=== PATIENT | male | born 1965 | race African-American/Black ===

== ENCOUNTER 2017-07-18 11:05 | Inpatient (IN) | payer OTHER ==
[2017-07-18 12:06] VITALS: BMI 30.5
--- NOTE | 2017-07-18 14:09 | HP ---
CIWA Score - CIWA Score Nausea/Vomitin Muscle Tremors: 4-Moderate,w/Arms Extend Anxiety: 3 Agitation: 4-Moderately Restless Paroxysmal Sweats: 3 Orientation: 0-Oriented Tacttile Disturbances: 0-None Auditory Disturbances: 0-None Visual Disturbances: 0-None Headache: 2-Mild CIWA-Ar Total Score: 18 Admission ROS BHS - HPI Chief Complaint: I am here for detox and rehab for treatment. Allergies/Adverse Reactions: Allergies Allergy/AdvReac Type Severity Reaction Status Date / Time No Known Allergies Allergy Verified 07/18/17 12:27 History of Present Illness: pt is a 51yr old male with a history of alcohol and crack cocaine dependence seeking detox for treatment. Exam Limitations: No Limitations - Ebola screening Have you traveled outside of the country in the last 21 days: No Have you had contact with anyone from an Ebola affected area: No Have you been sick,other than usual withdrawal symptoms: No Do you have a fever: No - Review of Systems Constitutional: Chills, Diaphoresis, Loss of Appetite, Night Sweats, Changes in sleep EENT: reports: No Symptoms Reported Respiratory: reports: No Symptoms reported Cardiac: reports: No Symptoms Reported GI: reports: Nausea, Poor Appetite, Poor Fluid Intake, Vomiting : reports: No Symptoms Reported Musculoskeletal: reports: Back Pain, Muscle Pain, Muscle Weakness Integumentary: reports: Flushing, Sweating Neuro: reports: Headache, Tingling, Tremors Endocrine: reports: Excessive Sweating, Flushing, Intolerance to Cold, Intolerance to Heat Hematology: reports: No Symptoms Reported Psychiatric: reports: Judgement Intact, Mood/Affect Appropiate, Orientated x3, Agitated, Anxious Other Systems: Reviewed and Negative Patient History - Patient Medical History Hx Anemia: No Hx Asthma: No Hx Chronic Obstructive Pulmonary Disease (COPD): No Hx Cancer: No Hx Cardiac Disorders: No Hx Congestive Heart Failure: No Hx Hypertension: Yes Hx Hypercholesterolemia: Yes Hx Pacemaker: No HX Cerebrovascular Accident: No Hx Seizures: No Hx Dementia: No Hx Diabetes: Yes (Type II) Hx Gastrointestinal Disorders: No Hx Liver Disease: No Hx Genitourinary Disorders: No Hx Sexually Transmitted Disorders: No Hx Renal Disease (ESRD): No Hx Thyroid Disease: No Hx Human Immunodeficiency Virus (HIV): No (negtive) Hx Hepatitis C: No (negative) Hx Depression: Yes Hx Suicide Attempt: Yes (Tried to overdose in 2007) Hx Bipolar Disorder: No Hx Schizophrenia: No Other Medical History: insomnia - Patient Surgical History Past Surgical History: No - PPD History Previous Implant?: Yes Documented Results: Negative w/o proof Implanted On Prior [facility] Admission?: No PPD to be Administered?: Yes - Reproductive History Patient is a Female of Child Bearing Age (11 -55 yrs old): No - Smoking Cessation Smoking history: Current every day smoker Have you smoked in the past 12 months: Yes Aproximately how many cigarettes per day: 3 Hx Chewing Tobacco Use: No Initiated information on smoking cessation: Yes 'Breaking Loose' booklet given: 07/18/17 - Substance & Tx. History Hx Alcohol Use: Yes Hx Substance Use: Yes Substance Use Type: Alcohol, Cocaine Hx Substance Use Treatment: Yes (last detox [facility] ) - Substances Abused Alcohol Route: Oral Frequency: Daily Amount used: 6pk beer and up Age of first use: 14 Date of Last Use: 07/18/17 Crack Route: Smoking Frequency: Daily Amount used: $100 and up Age of first use: 22 Date of Last Use: 07/18/17 Family Disease History - Family Disease History Family History: Denies Admission Physical Exam BHS - Vital Signs Vital Signs: Vital Signs - 24 hr 07/18/17 12:01 Temperature 96.7 F L Pulse Rate 94 H Respiratory 20 Rate Blood Pressure 152/94 - Physical General Appearance: Yes: Appropriately Dressed, Moderate Distress, Tremorous, Irritable, Sweating, Anxious HEENTM: Yes: Hearing grossly Normal, Normal Voice, Nasal Congestion Respiratory: Yes: Lungs Clear, Normal Breath Sounds, No Respiratory Distress Neck: Yes: No masses,lesions,Nodules Breast: Yes: Within Normal Limits Cardiology: Yes: Regular Rhythm, Regular Rate, S1, S2 Abdominal: Yes: Normal Bowel Sounds, Non Tender, Soft Genitourinary: Yes: Within Normal Limits Back: Yes: Normal Inspection Musculoskeletal: Yes: full range of Motion Extremities: Yes: Normal Capillary Refill, Normal Inspection, Tremors Neurological: Yes: Fully Oriented, Alert, Normal Response Integumentary: Yes: Normal Color, Diaphoresis Lymphatic: Yes: Within Normal Limits - Diagnostic (1) Alcohol dependence with uncomplicated withdrawal Current Visit: Yes Status: Chronic (2) Crack cocaine use Current Visit: Yes Status: Chronic (3) Diabetes mellitus Current Visit: Yes Status: Chronic Qualifiers: Diabetes mellitus type: type 1 Diabetes mellitus complication status: without complication Qualified Code(s): E10.9 - Type 1 diabetes mellitus without complications; E10.9 - Type 1 diabetes mellitus without complications; E10.9 - Type 1 diabetes mellitus without complications; E10.9 - Type 1 diabetes mellitus without complications (4) Hypercholesteremia Current Visit: Yes Status: Chronic (5) Hypertension Current Visit: Yes Status: Chronic Qualifiers: Hypertension type: essential hypertension Qualified Code(s): I10 - Essential (primary) hypertension; I10 - Essential (primary) hypertension; I10 - Essential (primary) hypertension (6) Neuropathic pain Current Visit: Yes Status: Chronic (7) Nicotine dependence Current Visit: Yes Status: Chronic Qualifiers: Nicotine product type: cigarettes Substance use status: uncomplicated Qualified Code(s): F17.210 - Nicotine dependence, cigarettes, uncomplicated; F17.210 - Nicotine dependence, cigarettes, uncomplicated Cleared for Admission BHS - Detox or Rehab [facility] Level of Care: Medically Managed Detox Regimen/Protocol: Librium [facility] Breath Alcohol Content Breath Alcohol Content: 0 Urine Drug Screen - Results Drug Screen Negative: No Urine Drug Screen Results: EDMAR-Cocaine
[2017-07-18] MEDS ORDERED: MAGNESIUM HYDROX 2400MG/30ML ORAL SUSPENSION 30 ML CUP PO PRN (14:10)
[2017-07-18] MEDS ORDERED: MAGNESIUM CITRATE 300 ML BOTTLE PO PRN (14:10)
[2017-07-18] MEDS ORDERED: guaiFENesin/D-METHORPHAN HB 10 ML UNIT-DOSE CUPS PO PRN (14:10)
[2017-07-18] MEDS ORDERED: ACETAMINOPHEN 325 MG TABLET (FP) PO PRN (14:10)
[2017-07-18] MEDS ORDERED: MENTHOL/PHENOL 1 EACH UD MM PRN (14:10)
[2017-07-18] MEDS ORDERED: IBUPROFEN 400 MG TABLET (FP) PO PRN (14:10)
[2017-07-18] MEDS ORDERED: P-EPHED 60MG/TRIPROLIDI 2.5MG TABLET PO PRN (14:10)
[2017-07-18] MEDS ORDERED: chlordiazePOXIDE HCL 25 MG CAPSULE PO PRN (14:10)
[2017-07-18] MEDS ORDERED: LOPERAMIDE HCL 2 MG CAPSULE PO PRN (14:10)
[2017-07-18] MEDS ORDERED: NICOTINE POLACRILEX 2 MG GUM BUC PRN (14:10)
[2017-07-18] MEDS ORDERED: diphenhydrAMINE HCL 50 MG CAPSULE PO PRN (14:10)
[2017-07-18] MEDS ORDERED: MAG HYDROX/AL HYDROX/SIMETH 30 ML UNIT-DOSE CUP PO PRN (14:10)
[2017-07-18] MEDS ORDERED: chlordiazePOXIDE HCL 25 MG CAPSULE PO ONE (14:47)
[2017-07-18] MEDS: GABAPENTIN 400 MG CAPSULE (FP) PO SCH ×2 (15:46→22:33)
[2017-07-18] MEDS: metFORMIN HCL 500 MG TABLET (FP) PO SCH (17:20)
[2017-07-18] MEDS: chlordiazePOXIDE HCL 25 MG CAPSULE PO SCH ×2 (17:20→22:33)
[2017-07-18 18:10] LABS: URINE APPEARANCE CLEAR; URINE BILIRUBIN NEGATIVE (NEGATIVE); URINE BLOOD NEGATIVE (NEGATIVE); URINE COLOR YELLOW; URINE GLUCOSE (UA) 2+ (NEGATIVE); URINE KETONE TRACE (NEGATIVE); URINE NITRITE NEGATIVE (NEGATIVE); URINE UROBILINOGEN NEGATIVE mg/dL (0.2-1.0)
[2017-07-18 18:17] LABS: URINE PROTEIN 1+ (NEGATIVE)
[2017-07-18 22:00] LABS: URINE LEUK ESTERASE Negative (NEGATIVE)
[2017-07-18] MEDS: THIAMINE HCL 100 MG TABLET (FP) PO SCH (22:33)
[2017-07-18] MEDS: ATORVASTATIN CA 40 MG TABLET (FP) PO SCH (22:33)
[2017-07-18] MEDS: INSULIN DETEMIR 100 UNITS/ML MDV SQ SCH (22:33)
[2017-07-19] MEDS: chlordiazePOXIDE HCL 25 MG CAPSULE PO SCH ×4 (05:50→22:10)
[2017-07-19] MEDS: GABAPENTIN 400 MG CAPSULE (FP) PO SCH ×3 (05:50→22:08)
[2017-07-19] MEDS: metFORMIN HCL 500 MG TABLET (FP) PO SCH ×2 (06:52→17:21)
[2017-07-19] MEDS ORDERED: INSULIN (NOVOLOG) ASPART 100 UNITS/ML 10ML VIAL ONE ×3 (07:58→17:19)
[2017-07-19] MEDS: INSULIN SLIDING SCALE (NOVOLOG) 1 VIAL SQ SCH ×3 (08:02→17:21)
--- NOTE | 2017-07-19 09:51 | EKG ---
Test Reason : Blood Pressure : / mmHG Vent. Rate : 078 BPM Atrial Rate : 078 BPM P-R Int : 172 ms QRS Dur : 100 ms QT Int : 372 ms P-R-T Axes : 055 043 052 degrees QTc Int : 424 ms NORMAL SINUS RHYTHM NORMAL ECG NO PREVIOUS ECGS AVAILABLE Confirmed by AMADOU MONTGOMERY MD ([id number]) on 07/19/2017 9:51:42 AM Referred By: Confirmed By:AMADOU MONTGOMERY MD
[2017-07-19 09:54] LABS: MCH 29.7 pg (25.7-33.7); MCHC 32.7 g/dl (32.0-35.9); MEAN CELL VOLUME 90.8 fl (80-96); PLATELET COUNT 193 K/MM3 (134-434); RDW 13.5 % (11.9-15.9); WHITE BLOOD COUNT 9.3 K/mm3 (4.0-10.0)
[2017-07-19 10:15] LABS: ALBUMIN 4.4 g/dl (3.4-5.0); ALK PHOS 120 U/L (45-117); ANION GAP 10 (8-16); BILIRUBIN,TOTAL 0.9 mg/dL (0.2-1.0); CALCIUM 9.8 mg/dL (8.5-10.1); CO2 25 mmol/L (21-32); CREATININE 1.6 mg/dL (0.7-1.3); SGOT/AST 38 U/L (15-37); SGPT/ALT 71 U/L (12-78)
[2017-07-19 10:45] LABS: GLUCOSE,RANDOM 345 mg/dL (74-106)
[2017-07-19] MEDS: PRENATAL VITAMINS W/ FOLIC ACID TABLET (FP) PO SCH (10:48)
[2017-07-19] MEDS: ASPIRIN 81 MG CHEWABLE TABLETS PO SCH (10:48)
[2017-07-19] MEDS: METOPROLOL SUCCINATE 25 MG TAB.SR.24H (FP) PO SCH (10:48)
[2017-07-19] MEDS: NICOTINE 14 MG/24 HOURS TOPICAL PATCH TD SCH (10:49)
--- NOTE | 2017-07-19 12:40 | PN ---
[facility] CIWA - CIWA Score Nausea/Vomitin-No Nausea/No Vomiting Muscle Tremors: 4-Moderate,w/Arms Extend Anxiety: 4-Mod. Anxious/Guarded Agitation: 4-Moderately Restless Paroxysmal Sweats: 1-Minimal Palms Moist Orientation: 0-Oriented Tacttile Disturbances: 3-Moderate Itch/Numb/Burn Auditory Disturbances: 0-None Visual Disturbances: 0-None Headache: 0-None Present CIWA-Ar Total Score: 16 S Progress Note (SOAP) Subjective: ANXIETY,SWEATS, ALERT O X 3. OOB ON HALLWAY. Objective: 07/19/17 12:39 Vital Signs Temperature 96.2 F L 07/19/17 06:53 Pulse Rate 98 H 07/19/17 06:53 Respiratory Rate 18 07/19/17 06:53 Blood Pressure 129/80 07/19/17 06:53 O2 Sat by Pulse Oximetry (%) Laboratory Last Values WBC 9.3 K/mm3 (4.0-10.0) 07/19/17 06:00 RBC 5.01 M/mm3 (4.00-5.60) 07/19/17 06:00 Hgb 14.9 GM/dL (11.7-16.9) 07/19/17 06:00 Hct 45.4 % (35.4-49) 07/19/17 06:00 MCV 90.8 fl (80-96) 07/19/17 06:00 MCH 29.7 pg (25.7-33.7) 07/19/17 06:00 MCHC 32.7 g/dl (32.0-35.9) 07/19/17 06:00 RDW 13.5 % (11.9-15.9) 07/19/17 06:00 Plt Count 193 K/MM3 (134-434) 07/19/17 06:00 MPV 10.0 fl (7.5-11.1) 07/19/17 06:00 Sodium 134 mmol/L (136-145) L 07/19/17 06:00 Potassium 4.4 mmol/L (3.5-5.1) 07/19/17 06:00 Chloride 99 mmol/L (98-107) 07/19/17 06:00 Carbon Dioxide 25 mmol/L (21-32) 07/19/17 06:00 Anion Gap 10 (8-16) 07/19/17 06:00 BUN 20 mg/dL (7-18) H 07/19/17 06:00 Creatinine 1.6 mg/dL (0.7-1.3) H 07/19/17 06:00 Creat Clearance w eGFR 45.98 (>60) 07/19/17 06:00 POC Glucometer 153 UNITS (()) 07/19/17 11:33 Random Glucose 345 mg/dL (74-106) H* 07/19/17 06:00 Calcium 9.8 mg/dL (8.5-10.1) 07/19/17 06:00 Total Bilirubin 0.9 mg/dL (0.2-1.0) 07/19/17 06:00 AST 38 U/L (15-37) H 07/19/17 06:00 ALT 71 U/L (12-78) 07/19/17 06:00 Alkaline Phosphatase 120 U/L (45-117) H 07/19/17 06:00 Total Protein 8.0 g/dl (6.4-8.2) 07/19/17 06:00 Albumin 4.4 g/dl (3.4-5.0) 07/19/17 06:00 Urine Color Yellow 07/18/17 15:00 Urine Appearance Clear 07/18/17 15:00 Urine pH 5.0 (5.0-8.0) 07/18/17 15:00 Ur Specific [place] 1.025 (1.005-1.025) 07/18/17 15:00 Urine Protein 1+ (NEGATIVE) H 07/18/17 15:00 Urine Glucose (UA) 2+ (NEGATIVE) H 07/18/17 15:00 Urine Ketones Trace (NEGATIVE) H 07/18/17 15:00 Urine Blood Negative (NEGATIVE) 07/18/17 15:00 Urine Nitrite Negative (NEGATIVE) 07/18/17 15:00 Urine Bilirubin Negative (NEGATIVE) 07/18/17 15:00 Urine Urobilinogen Negative mg/dL (0.2-1.0) 07/18/17 15:00 Ur Leukocyte Esterase Negative (NEGATIVE) 07/18/17 15:00 Assessment: 07/19/17 12:39 WITHDRAWAL SX Plan: CONTINUE DETOX
[2017-07-19] MEDS: hydrOXYzine PAMOATE 50 MG CAPSULE (FP) PO PRN (14:58)
--- NOTE | 2017-07-19 16:56 | CONSULT ---
[facility] Psychiatric Consult - Data Date of interview: 07/19/17 Admission source: [facility] Identifying data: First admission to [facility] for this 51 y/o AA male seeking detox treatment [address] for alcohol and cocaine (crack) dependence.Patient is single,a father of three,homeless,unemployed and supported on SSI benefits. Substance Abuse History: Discussed in this session.Patient confirmed this report. Smoking Cessation. Smoking history: Current every day smoker. Have you smoked in the past 12 months: Yes. Aproximately how many cigarettes per day : 3. Hx Chewing Tobacco Use: No. Initiated information on smoking cessation: Yes. 'Breaking Loose' booklet given: 07/18/17. - Substance & Tx. History. Hx Alcohol Use: Yes. Hx Substance Use: Yes. Substance Use Type: Alcohol, Cocaine. Hx Substance Use Treatment: Yes (last detox [facility] ). - Substances Abused. Alcohol. Route: Oral. Frequency: Daily. Amount used: 6pk beer and up. Age of first use: 14. Date of Last Use: 07/18/17. Crack. Route: Smoking. Frequency: Daily. Amount used: $100 and up. Age of first use: 22. Date of Last Use: 07/18/17 Medical History: Hypercholesterolemia and diabetes mellitus. Psychiatric History: Patient admits to a history of multiple psychiatric hospitalizations (all in [facility]).Diagnosed with MDD.Medicated with trazodone,sertraline and seroquel (doses not recalled by patient).Followed at a mental health clinic in [facility].Unable to remember the name of institution.Mr Lindsay denies history of suicide attempts. Physical/Sexual Abuse/Trauma History: No reported history of abuse. Additional Comment: Urine Drug Screen Results: EDMAR-Cocaine.Noted. Mental Status Exam - Mental Status Exam Alert and Oriented to: Time, Place, Person Cognitive Function: Good Patient Appearance: Well Groomed (long scar of left side of face) Mood: Hopeful, Euthymic Affect: Appropriate, Normal Range Patient Behavior: Appropriate, Cooperative Speech Pattern: Clear Voice Loudness: Normal Thought Process: Goal Oriented Thought Disorder: Not Present Hallucinations: Denies Suicidal Ideation: Denies Homicidal Ideation: Denies Insight/Judgement: Poor Sleep: Poorly, Difficulty falling asleep Appetite: Good Muscle strength/Tone: Normal Gait/Station: Normal Psychiatric Findings - Problem List ([place] 1, 2,3) (1) Alcohol dependence with uncomplicated withdrawal Current Visit: Yes Status: Chronic (2) Cocaine dependence Current Visit: Yes Status: Acute (3) Nicotine dependence Current Visit: Yes Status: Acute Qualifiers: Nicotine product type: cigarettes Substance use status: uncomplicated Qualified Code(s): F17.210 - Nicotine dependence, cigarettes, uncomplicated; F17.210 - Nicotine dependence, cigarettes, uncomplicated (4) Substance induced mood disorder Current Visit: Yes Status: Acute (5) Depressive disorder Current Visit: Yes Status: Chronic (6) Diabetes mellitus Current Visit: Yes Status: Chronic Qualifiers: Diabetes mellitus complication status: without complication (7) Hypercholesteremia Current Visit: Yes Status: Chronic (8) Hypertension Current Visit: Yes Status: Chronic Qualifiers: Hypertension type: essential hypertension Qualified Code(s): I10 - Essential (primary) hypertension; I10 - Essential (primary) hypertension; I10 - Essential (primary) hypertension (9) Neuropathic pain Current Visit: Yes Status: Chronic (10) Insomnia Current Visit: Yes Status: Acute - Initial Treatment Plan Initial Treatment Plan: Psychoeducation.Detoxification.Medications : seroquel 100 mg po hs + zoloft 100 mg po daily + trazodone 100 mg po hs.Side effects/ benefits of each medication are discussed with patient.Made aware,in particular, of the risk for priapism (trazodone),suicidal ideation/sexual impotence (zoloft ) and abnormal involuntary movements,metabolic syndrome,cardiovascular adverse events,oversedation/falls (seroquel).No reported history of adverse effects.Pattient consents (verbally) to continue these drugs in this hospital course.Observation.
[2017-07-19] MEDS: ATORVASTATIN CA 40 MG TABLET (FP) PO SCH (22:08)
[2017-07-19] MEDS: traZODone HCL 50 MG TABLET (FP) PO SCH (22:08)
[2017-07-19] MEDS: QUEtiapine FUMARATE 100 MG TABLET (FP) PO SCH (22:09)
[2017-07-19] MEDS: THIAMINE HCL 100 MG TABLET (FP) PO SCH (22:09)
[2017-07-19] MEDS: INSULIN DETEMIR 100 UNITS/ML MDV SQ SCH (22:10)
[2017-07-20] MEDS ORDERED: INSULIN (NOVOLOG) ASPART 100 UNITS/ML 10ML VIAL SQ ONE (01:16)
--- NOTE | 2017-07-20 01:18 | PN ---
S Progress Note Note: ASKED TO SEE PT FOR REPORTED FALL. CLIENT STATES HE FELL WHILE TRYING TO GET OOB. HE BROKE HIS FALL WITH HIS HANDS. C/O LETHARGY, DIZZINESS. DENIES HEAD TRAUMA, C.P. SOB, OR ANY INJURIES. O- Vital Signs 07/20/17 07/20/17 07/20/17 00:51 01:00 03:30 Temperature 96.7 F L Pulse Rate 82 Respiratory 18 18 18 Rate Blood Pressure 116/81 A/O X 3 HEAD NCAT SKIN INTACT EXTREMITIES FROM X4 W/O LIMITATIONS OR INJURIES A- UNWITNESSED FALL P- FALL PROTOCOL #2 HOLD ALL SEDATING MEDS FOR NOW CONT TO MONITOR CLOSELY
[2017-07-20] MEDS ORDERED: INSULIN (NOVOLOG) ASPART 100 UNITS/ML 10ML VIAL ONE ×2 (01:28→07:40)
[2017-07-20] MEDS: GABAPENTIN 400 MG CAPSULE (FP) PO SCH ×3 (06:01→22:37)
[2017-07-20] MEDS: chlordiazePOXIDE HCL 25 MG CAPSULE PO SCH ×2 (06:01→10:47)
[2017-07-20] MEDS: INSULIN SLIDING SCALE (NOVOLOG) 1 VIAL SQ SCH ×3 (07:41→17:36)
[2017-07-20] MEDS: metFORMIN HCL 500 MG TABLET (FP) PO SCH ×2 (07:41→17:37)
[2017-07-20] MEDS: SERTRALINE HCL 50 MG TABLET (FP) PO SCH (10:45)
[2017-07-20] MEDS: ASPIRIN 81 MG CHEWABLE TABLETS PO SCH (10:45)
[2017-07-20] MEDS: PRENATAL VITAMINS W/ FOLIC ACID TABLET (FP) PO SCH (10:46)
[2017-07-20] MEDS: METOPROLOL SUCCINATE 25 MG TAB.SR.24H (FP) PO SCH (10:46)
[2017-07-20] MEDS: NICOTINE 14 MG/24 HOURS TOPICAL PATCH TD SCH (10:46)
[2017-07-20] MEDS: hydrOXYzine PAMOATE 50 MG CAPSULE (FP) PO PRN (15:04)
--- NOTE | 2017-07-20 16:19 | PN ---
S CIWA - CIWA Score Nausea/Vomitin Muscle Tremors: 4-Moderate,w/Arms Extend Anxiety: 0-No Anxiety, at Ease Agitation: 2 Paroxysmal Sweats: 3 Orientation: 0-Oriented Tacttile Disturbances: 0-None Auditory Disturbances: 0-None Visual Disturbances: 2-Mild Sensitivity Headache: 3-Moderate CIWA-Ar Total Score: 17 S Progress Note (SOAP) Subjective: Body Aches, Diarrhea, H/A, Stomach Cramping, Interrupted sleep, Sweating, Chills , Tremors. Objective: PT. A & O X 3, OBSERVED AMBULATING ON UNIT. NO ACUTE DISTRESS. 07/20/17 16:16 Vital Signs Temperature 97.9 F 07/20/17 10:08 Pulse Rate 93 H 07/20/17 10:08 Respiratory Rate 18 07/20/17 10:08 Blood Pressure 124/77 07/20/17 10:08 O2 Sat by Pulse Oximetry (%) Laboratory Tests 07/18/17 07/18/17 07/18/17 12:43 15:00 16:20 WBC RBC Hgb Hct MCV MCH MCHC RDW Plt Count MPV Sodium Potassium Chloride Carbon Dioxide Anion Gap BUN Creatinine Creat Clearance w eGFR POC Glucometer 368 193 Random Glucose Calcium Total Bilirubin AST ALT Alkaline Phosphatase Total Protein Albumin Urine Color Yellow Urine Appearance Clear Urine pH 5.0 Ur Specific [place] 1.025 Urine Protein 1+ H Urine Glucose (UA) 2+ H Urine Ketones Trace H Urine Blood Negative Urine Nitrite Negative Urine Bilirubin Negative Urine Urobilinogen Negative Ur Leukocyte Esterase Negative RPR Titer 07/18/17 07/19/17 07/19/17 21:55 05:49 06:00 WBC 9.3 RBC 5.01 Hgb 14.9 Hct 45.4 MCV 90.8 MCH 29.7 MCHC 32.7 RDW 13.5 Plt Count 193 MPV 10.0 Sodium Potassium Chloride Carbon Dioxide Anion Gap BUN Creatinine Creat Clearance w eGFR POC Glucometer 267 297 Random Glucose Calcium Total Bilirubin AST ALT Alkaline Phosphatase Total Protein Albumin Urine Color Urine Appearance Urine pH Ur Specific [place] Urine Protein Urine Glucose (UA) Urine Ketones Urine Blood Urine Nitrite Urine Bilirubin Urine Urobilinogen Ur Leukocyte Esterase RPR Titer 07/19/17 07/19/17 07/19/17 06:00 06:00 11:33 WBC RBC Hgb Hct MCV MCH MCHC RDW Plt Count MPV Sodium 134 L Potassium 4.4 Chloride 99 Carbon Dioxide 25 Anion Gap 10 BUN 20 H Creatinine 1.6 H Creat Clearance w eGFR 45.98 POC Glucometer 153 Random Glucose 345 H* Calcium 9.8 Total Bilirubin 0.9 AST 38 H ALT 71 Alkaline Phosphatase 120 H Total Protein 8.0 Albumin 4.4 Urine Color Urine Appearance Urine pH Ur Specific [place] Urine Protein Urine Glucose (UA) Urine Ketones Urine Blood Urine Nitrite Urine Bilirubin Urine Urobilinogen Ur Leukocyte Esterase RPR Titer Nonreactive 07/19/17 07/19/17 07/20/17 16:34 21:28 01:12 WBC RBC Hgb Hct MCV MCH MCHC RDW Plt Count MPV Sodium Potassium Chloride Carbon Dioxide Anion Gap BUN Creatinine Creat Clearance w eGFR POC Glucometer 260 287 407 Random Glucose Calcium Total Bilirubin AST ALT Alkaline Phosphatase Total Protein Albumin Urine Color Urine Appearance Urine pH Ur Specific [place] Urine Protein Urine Glucose (UA) Urine Ketones Urine Blood Urine Nitrite Urine Bilirubin Urine Urobilinogen Ur Leukocyte Esterase RPR Titer 07/20/17 06:37 WBC RBC Hgb Hct MCV MCH MCHC RDW Plt Count MPV Sodium Potassium Chloride Carbon Dioxide Anion Gap BUN Creatinine Creat Clearance w eGFR POC Glucometer 295 Random Glucose Calcium Total Bilirubin AST ALT Alkaline Phosphatase Total Protein Albumin Urine Color Urine Appearance Urine pH Ur Specific [place] Urine Protein Urine Glucose (UA) Urine Ketones Urine Blood Urine Nitrite Urine Bilirubin Urine Urobilinogen Ur Leukocyte Esterase RPR Titer LABS NOTED. Assessment: 07/20/17 16:17 WITHDRAWAL SYMPTOMS. Plan: CONTINUE DETOX. D/C MAGNESIUM-CONTAINING MEDS. BMP ON 07/21/2017 FOR ABNORMAL ADMISSION RENAL LABS. INCREASE DAILY PO FLUID INTAKE.
[2017-07-20] MEDS: chlordiazePOXIDE 5 MG CAPSULE PO SCH ×2 (17:36→22:38)
[2017-07-20] MEDS: traZODone HCL 50 MG TABLET (FP) PO SCH (22:37)
[2017-07-20] MEDS: THIAMINE HCL 100 MG TABLET (FP) PO SCH (22:37)
[2017-07-20] MEDS: INSULIN DETEMIR 100 UNITS/ML MDV SQ SCH (22:37)
[2017-07-20] MEDS: ATORVASTATIN CA 40 MG TABLET (FP) PO SCH (22:37)
[2017-07-20] MEDS: QUEtiapine FUMARATE 100 MG TABLET (FP) PO SCH (22:37)
[2017-07-21] MEDS: GABAPENTIN 400 MG CAPSULE (FP) PO SCH ×3 (08:09→23:12)
[2017-07-21] MEDS: chlordiazePOXIDE 5 MG CAPSULE PO SCH ×2 (08:09→10:57)
[2017-07-21] MEDS ORDERED: INSULIN (NOVOLOG) ASPART 100 UNITS/ML 10ML VIAL ONE ×3 (08:14→17:03)
[2017-07-21] MEDS: metFORMIN HCL 500 MG TABLET (FP) PO SCH ×2 (08:22→17:55)
[2017-07-21] MEDS: INSULIN SLIDING SCALE (NOVOLOG) 1 VIAL SQ SCH ×3 (08:22→17:53)
[2017-07-21 10:21] LABS: ANION GAP 6 (8-16); CALCIUM 9.9 mg/dL (8.5-10.1); CO2 31 mmol/L (21-32); CREATININE 1.2 mg/dL (0.7-1.3)
[2017-07-21 10:33] LABS: GLUCOSE,RANDOM 322 mg/dL (74-106)
[2017-07-21] MEDS: NICOTINE 14 MG/24 HOURS TOPICAL PATCH TD SCH (10:55)
[2017-07-21] MEDS: METOPROLOL SUCCINATE 25 MG TAB.SR.24H (FP) PO SCH (10:55)
[2017-07-21] MEDS: ASPIRIN 81 MG CHEWABLE TABLETS PO SCH (10:55)
[2017-07-21] MEDS: PRENATAL VITAMINS W/ FOLIC ACID TABLET (FP) PO SCH (10:55)
[2017-07-21] MEDS: SERTRALINE HCL 50 MG TABLET (FP) PO SCH (10:55)
[2017-07-21] MEDS: hydrOXYzine PAMOATE 50 MG CAPSULE (FP) PO PRN ×2 (15:40→23:16)
--- NOTE | 2017-07-21 15:47 | PN ---
[facility] Progress Note (SOAP) Subjective: Sweating,interrupted sleep,restless Objective: 07/21/17 15:45 Vital Signs - 8 hr 07/21/17 07/21/17 09:45 13:33 Temperature 97 F L 97.9 F Pulse Rate 88 99 H Respiratory 18 20 Rate Blood Pressure 128/78 131/81 Laboratory Tests 07/18/17 07/18/17 07/18/17 12:43 15:00 16:20 WBC RBC Hgb Hct MCV MCH MCHC RDW Plt Count MPV Sodium Potassium Chloride Carbon Dioxide Anion Gap BUN Creatinine Creat Clearance w eGFR POC Glucometer 368 193 Random Glucose Calcium Total Bilirubin AST ALT Alkaline Phosphatase Total Protein Albumin Urine Color Yellow Urine Appearance Clear Urine pH 5.0 Ur Specific [place] 1.025 Urine Protein 1+ H Urine Glucose (UA) 2+ H Urine Ketones Trace H Urine Blood Negative Urine Nitrite Negative Urine Bilirubin Negative Urine Urobilinogen Negative Ur Leukocyte Esterase Negative RPR Titer 07/18/17 07/19/17 07/19/17 21:55 05:49 06:00 WBC 9.3 RBC 5.01 Hgb 14.9 Hct 45.4 MCV 90.8 MCH 29.7 MCHC 32.7 RDW 13.5 Plt Count 193 MPV 10.0 Sodium Potassium Chloride Carbon Dioxide Anion Gap BUN Creatinine Creat Clearance w eGFR POC Glucometer 267 297 Random Glucose Calcium Total Bilirubin AST ALT Alkaline Phosphatase Total Protein Albumin Urine Color Urine Appearance Urine pH Ur Specific [place] Urine Protein Urine Glucose (UA) Urine Ketones Urine Blood Urine Nitrite Urine Bilirubin Urine Urobilinogen Ur Leukocyte Esterase RPR Titer 07/19/17 07/19/17 07/19/17 06:00 06:00 11:33 WBC RBC Hgb Hct MCV MCH MCHC RDW Plt Count MPV Sodium 134 L Potassium 4.4 Chloride 99 Carbon Dioxide 25 Anion Gap 10 BUN 20 H Creatinine 1.6 H Creat Clearance w eGFR 45.98 POC Glucometer 153 Random Glucose 345 H* Calcium 9.8 Total Bilirubin 0.9 AST 38 H ALT 71 Alkaline Phosphatase 120 H Total Protein 8.0 Albumin 4.4 Urine Color Urine Appearance Urine pH Ur Specific [place] Urine Protein Urine Glucose (UA) Urine Ketones Urine Blood Urine Nitrite Urine Bilirubin Urine Urobilinogen Ur Leukocyte Esterase RPR Titer Nonreactive 07/19/17 07/19/17 07/20/17 16:34 21:28 01:12 WBC RBC Hgb Hct MCV MCH MCHC RDW Plt Count MPV Sodium Potassium Chloride Carbon Dioxide Anion Gap BUN Creatinine Creat Clearance w eGFR POC Glucometer 260 287 407 Random Glucose Calcium Total Bilirubin AST ALT Alkaline Phosphatase Total Protein Albumin Urine Color Urine Appearance Urine pH Ur Specific [place] Urine Protein Urine Glucose (UA) Urine Ketones Urine Blood Urine Nitrite Urine Bilirubin Urine Urobilinogen Ur Leukocyte Esterase RPR Titer 07/20/17 07/20/17 07/20/17 06:37 16:38 21:51 WBC RBC Hgb Hct MCV MCH MCHC RDW Plt Count MPV Sodium Potassium Chloride Carbon Dioxide Anion Gap BUN Creatinine Creat Clearance w eGFR POC Glucometer 295 334 300 Random Glucose Calcium Total Bilirubin AST ALT Alkaline Phosphatase Total Protein Albumin Urine Color Urine Appearance Urine pH Ur Specific [place] Urine Protein Urine Glucose (UA) Urine Ketones Urine Blood Urine Nitrite Urine Bilirubin Urine Urobilinogen Ur Leukocyte Esterase RPR Titer 07/21/17 07/21/17 07/21/17 04:52 07:40 11:20 WBC RBC Hgb Hct MCV MCH MCHC RDW Plt Count MPV Sodium 135 L Potassium 4.9 Chloride 98 Carbon Dioxide 31 D Anion Gap 6 L BUN 13 D Creatinine 1.2 D Creat Clearance w eGFR POC Glucometer 434 264 Random Glucose 322 H* Calcium 9.9 Total Bilirubin AST ALT Alkaline Phosphatase Total Protein Albumin Urine Color Urine Appearance Urine pH Ur Specific [place] Urine Protein Urine Glucose (UA) Urine Ketones Urine Blood Urine Nitrite Urine Bilirubin Urine Urobilinogen Ur Leukocyte Esterase RPR Titer labs noted Assessment: 07/21/17 15:46 Withdrawal sx. Plan: Continue detox
[2017-07-21] MEDS: chlordiazePOXIDE HCL 10 MG CAPSULE PO SCH ×2 (17:53→23:12)
[2017-07-21] MEDS: ATORVASTATIN CA 40 MG TABLET (FP) PO SCH (23:12)
[2017-07-21] MEDS: traZODone HCL 50 MG TABLET (FP) PO SCH (23:12)
[2017-07-21] MEDS: THIAMINE HCL 100 MG TABLET (FP) PO SCH (23:12)
[2017-07-21] MEDS: INSULIN DETEMIR 100 UNITS/ML MDV SQ SCH (23:13)
[2017-07-21] MEDS: QUEtiapine FUMARATE 100 MG TABLET (FP) PO SCH (23:13)
[2017-07-22] MEDS: GABAPENTIN 400 MG CAPSULE (FP) PO SCH (05:45)
[2017-07-22] MEDS: chlordiazePOXIDE HCL 10 MG CAPSULE PO SCH ×2 (06:27→10:49)
[2017-07-22] MEDS ORDERED: INSULIN (NOVOLOG) ASPART 100 UNITS/ML 10ML VIAL ONE (07:23)
[2017-07-22] MEDS: metFORMIN HCL 500 MG TABLET (FP) PO SCH (07:25)
[2017-07-22] MEDS: INSULIN SLIDING SCALE (NOVOLOG) 1 VIAL SQ SCH ×2 (07:25→12:28)
--- NOTE | 2017-07-22 09:30 | DS ---
[facility] Detox Discharge Summary Admission Date: 07/18/17 Discharge Date: 07/22/17 - History Present History: Alcohol Dependence, Cocaine Dependence Additional Comments: Detox completed. Alert and oriented x 3 and in no acute distress. Patient was non compliant with diabetic diet order. Patient encouraged to follow up with PMD for medical management. Pertinent Past History: DM, Hypercholesteremia, HTN, Neuropathic pain, Nicotimne dependence, Depression - Physical Exam Results Vital Signs: Vital Signs Temperature 96.2 F L 07/22/17 06:26 Pulse Rate 79 07/22/17 06:26 Respiratory Rate 18 07/22/17 06:26 Blood Pressure 128/81 07/22/17 06:26 O2 Sat by Pulse Oximetry (%) Laboratory Results - last 24 hr 07/21/17 07/21/17 07/21/17 07:40 11:20 16:36 Sodium 135 L Potassium 4.9 Chloride 98 Carbon Dioxide 31 D Anion Gap 6 L BUN 13 D Creatinine 1.2 D POC Glucometer 264 294 Random Glucose 322 H* Calcium 9.9 07/21/17 07/22/17 20:26 05:44 Sodium Potassium Chloride Carbon Dioxide Anion Gap BUN Creatinine POC Glucometer 311 407 Random Glucose Calcium Labs completed. Patient non compliant with diabetic management. Will f/u with PMD on discharge. Pertinent Admission Physical Exam Findings: Withdrawal sx - Treatment Hospital Course: Detox Protocol Followed, Detoxed Safely, Responded well, Discharged Condition Good Patient has Accepted a Rehab Referral to: [place], [place] - Medication Discharge Medications: Ambulatory Orders Aspirin [ASA -] 81 mg PO DAILY 07/18/17 Atorvastatin Calcium 40 mg PO HS 07/18/17 Gabapentin [Neurontin -] 400 mg PO Q8H 07/18/17 Hydroxyzine HCl [Atarax -] 25 mg PO TID PRN 07/18/17 Insulin Glargine,Hum.rec.anlog [Lantus Solostar PEN (NF)] 25 units SQ HS Metformin HCl [Glucophage] 1,000 mg PO BIDAC 07/18/17 Metoprolol Succinate [Toprol Xl -] 25 mg PO DAILY 07/18/17 Sertraline HCl [Zoloft -] 100 mg PO DAILY 07/18/17 Trazodone HCl [Desyrel -] 100 mg PO HS 10/05/17 - Diagnosis (1) Cocaine dependence Current Visit: Yes Status: Acute (2) Insomnia Current Visit: Yes Status: Acute (3) Nicotine dependence Current Visit: Yes Status: Acute Qualifiers: Nicotine product type: cigarettes Substance use status: uncomplicated Qualified Code(s): F17.210 - Nicotine dependence, cigarettes, uncomplicated; F17.210 - Nicotine dependence, cigarettes, uncomplicated (4) Substance induced mood disorder Current Visit: Yes Status: Acute (5) Alcohol dependence with uncomplicated withdrawal Current Visit: Yes Status: Chronic (6) Diabetes mellitus Current Visit: Yes Status: Chronic Qualifiers: Diabetes mellitus complication status: without complication (7) Hypercholesteremia Current Visit: Yes Status: Chronic (8) Hypertension Current Visit: Yes Status: Chronic Qualifiers: Hypertension type: essential hypertension Qualified Code(s): I10 - Essential (primary) hypertension; I10 - Essential (primary) hypertension; I10 - Essential (primary) hypertension (9) Neuropathic pain Current Visit: Yes Status: Chronic - AMA Did Patient Leave Against Medical Advice: No
[2017-07-22 10:46] VITALS: BP 128/89; PULSE 89; TEMP 98.7
[2017-07-22] MEDS: PRENATAL VITAMINS W/ FOLIC ACID TABLET (FP) PO SCH (10:49)
[2017-07-22] MEDS: NICOTINE 14 MG/24 HOURS TOPICAL PATCH TD SCH (10:49)
[2017-07-22] MEDS: SERTRALINE HCL 50 MG TABLET (FP) PO SCH (10:50)
[2017-07-22] MEDS: METOPROLOL SUCCINATE 25 MG TAB.SR.24H (FP) PO SCH (10:50)
[2017-07-22] MEDS: ASPIRIN 81 MG CHEWABLE TABLETS PO SCH (10:51)
--- NOTE | 2017-07-22 16:08 | PN ---
S Progress Note Note: DISCHARGE AND NOTE DONE UNDER MY SUPERVISION WITH Yelena Hutson NP
== END 2017-07-22 13:05 | disposition home or self-care (01) | DRG 774 ==
LOC: YASAS 11:05 → Y3N 13:15
PROVIDERS: ADMIT Internal Medicine; ATTEND Internal Medicine
PROC: HZ2ZZZZ Detoxification Services for Substance Abuse Treatment (ICD-10-PCS; principal; 2017-07-18)
DX: F10.230 Alcohol dependence with withdrawal, uncomplicated (principal); F14.20 Cocaine dependence, uncomplicated; F17.210 Nicotine dependence, cigarettes, uncomplicated; F19.24 Other psychoactive substance dependence with psychoactive substance-induced mood disorder; E11.9 Type 2 diabetes mellitus without complications; E78.00 Pure hypercholesterolemia, unspecified; I10 Essential (primary) hypertension; G62.9 Polyneuropathy, unspecified; R42 Dizziness and giddiness; R53.83 Other fatigue; W06.XXXA Fall from bed, initial encounter; Y93.89 Activity, other specified; Y92.230 Patient room in hospital as the place of occurrence of the external cause; Z91.5 Personal history of self-harm
CPT/HCPCS: 36415; 80048; 80053; 81003; 81015; 85027; 86593; 93005; 93010

== ENCOUNTER 2017-07-23 07:50 | Inpatient (IN) | payer OTHER ==
[2017-07-23 08:58] VITALS: BMI 30.5
[2017-07-23] MEDS ORDERED: MENTHOL/PHENOL 1 EACH UD MM PRN (12:46)
[2017-07-23] MEDS ORDERED: NICOTINE POLACRILEX 4 MG GUM BUC PRN (12:46)
[2017-07-23] MEDS ORDERED: MAG HYDROX/AL HYDROX/SIMETH 30 ML UNIT-DOSE CUP PO PRN (12:46)
[2017-07-23] MEDS ORDERED: MAGNESIUM CITRATE 300 ML BOTTLE PO PRN (12:46)
[2017-07-23] MEDS ORDERED: MAGNESIUM HYDROX 2400MG/30ML ORAL SUSPENSION 30 ML CUP PO PRN (12:46)
[2017-07-23] MEDS ORDERED: IBUPROFEN 400 MG TABLET (FP) PO PRN (12:46)
[2017-07-23] MEDS ORDERED: P-EPHED 60MG/TRIPROLIDI 2.5MG TABLET PO PRN (12:46)
[2017-07-23] MEDS ORDERED: ACETAMINOPHEN 325 MG TABLET (FP) PO PRN (12:46)
[2017-07-23] MEDS ORDERED: guaiFENesin/D-METHORPHAN HB 10 ML UNIT-DOSE CUPS PO PRN (12:46)
[2017-07-23] MEDS ORDERED: LOPERAMIDE HCL 2 MG CAPSULE PO PRN (12:46)
--- NOTE | 2017-07-23 12:46 | HP ---
[facility] Rehab Assess/Revision - Admission History Admitted to Rehab from: [facility] [place] - Vital signs Vital Signs: Vital Signs Period Temp Pulse Resp BP Sys/Doan Pulse Ox Last 24 Hr 97.7 F 76 18 137/82 - Findings Detox History & Physical reviewed: Yes Concur with findings: Yes
--- NOTE | 2017-07-23 14:06 | HP ---
[facility] Rehab Assess/Revision - Vital signs Vital Signs: Vital Signs Period Temp Pulse Resp BP Sys/Doan Pulse Ox Last 24 Hr 97.7 F 76 18 137/82 Inpatient Rehab Admission - Initial Determination Are CD services needed?: Yes Free of communicable disease: Yes Not in need of hospitalization: No - Rehab Admission Criteria Previous failed treatment: Yes Patient is meeting Inpatient Rehab admission criteria:: Yes
[2017-07-23] MEDS: metFORMIN HCL 500 MG TABLET (FP) PO SCH (17:04)
[2017-07-23] MEDS: GABAPENTIN 400 MG CAPSULE (FP) PO SCH ×2 (17:04→21:37)
[2017-07-23] MEDS: hydrOXYzine PAMOATE 50 MG CAPSULE (FP) PO PRN (17:06)
[2017-07-23 17:24] LABS: URINE APPEARANCE CLEAR; URINE BILIRUBIN NEGATIVE (NEGATIVE); URINE BLOOD NEGATIVE (NEGATIVE); URINE COLOR LTYELLOW; URINE GLUCOSE (UA) 3+ (NEGATIVE); URINE KETONE NEGATIVE (NEGATIVE); URINE NITRITE NEGATIVE (NEGATIVE); URINE PROTEIN NEGATIVE (NEGATIVE); URINE UROBILINOGEN NEGATIVE mg/dL (0.2-1.0)
--- NOTE | 2017-07-23 20:20 | PN ---
Dee Progress Note Note: Psychiatry Attending's building components designer note : Called to enter orders for seroquel ,trazodone and sertraline. Mr Raygoza is already known to this feature writer from [address] [place] [address]. See my note of 07/19/17. Patient is transferred to [address] [place] [address] today. Plan : Seroquel is raised to 150 mg po hs (not effective at 100 mg/insomnia persists) Zoloft 100 mg po daily Trazodone 100 mg po hs Titration to follow as clinically indicated.
[2017-07-23 21:36] LABS: URINE LEUK ESTERASE Negative (NEGATIVE)
[2017-07-23] MEDS: INSULIN DETEMIR 100 UNITS/ML MDV SQ SCH (21:36)
[2017-07-23] MEDS: traZODone HCL 100 MG TABLET (FP) PO SCH (21:37)
[2017-07-23] MEDS: THIAMINE HCL 100 MG TABLET (FP) PO SCH (21:37)
[2017-07-23] MEDS: diphenhydrAMINE HCL 50 MG CAPSULE PO PRN (21:38)
[2017-07-23] MEDS ORDERED: QUEtiapine FUMARATE 100 MG TABLET (FP) PO SCH (22:00)
[2017-07-24] MEDS: metFORMIN HCL 500 MG TABLET (FP) PO SCH ×2 (06:29→16:52)
[2017-07-24] MEDS: GABAPENTIN 400 MG CAPSULE (FP) PO SCH ×3 (06:29→21:20)
[2017-07-24] MEDS: hydrOXYzine PAMOATE 50 MG CAPSULE (FP) PO PRN ×3 (06:31→21:23)
--- NOTE | 2017-07-24 07:22 | PN ---
[facility] Progress Note Note: BGM 400,BGM MONITORING,WITH INSULIN COVERAGE,HBA1C,DENTAL PROSTHETIST CONSULTATION CLOSE MONITORING
[2017-07-24] MEDS: METOPROLOL SUCCINATE 25 MG TAB.SR.24H (FP) PO SCH (10:28)
[2017-07-24] MEDS: SERTRALINE HCL 50 MG TABLET (FP) PO SCH (10:28)
[2017-07-24] MEDS: NICOTINE 21 MG/24 HOURS TOPICAL PATCH TD SCH (10:28)
[2017-07-24] MEDS: PRENATAL VITAMINS W/ FOLIC ACID TABLET (FP) PO SCH (10:28)
[2017-07-24] MEDS: ASPIRIN 81 MG CHEWABLE TABLETS PO SCH (10:28)
[2017-07-24] MEDS: INSULIN SLIDING SCALE (NOVOLOG) 1 VIAL SQ SCH ×3 (11:54→21:22)
--- NOTE | 2017-07-24 11:58 | HP ---
Psychiatrist Admission - Data Date of interview: 07/24/17 Admission source: 3N Identifying data: This is the first 5N inpatient rehabilitation admission for this51 year old single AA male father of 3 who is unemployed on SSI and currently homeless. Medical History: Hypercholesterolemia and diabetes mellitus.Smoke cigarettes 5- 10 a day. Psychiatric History: Patient reports first psychiatric contact at age of 22, reports he was hopeless, depressed, paranoid and had auditory hallucinations, saw the psychiatrist in [place], was diagnosed with Schizophrenia paranoid, reports more that 10 psychiatric hospitalizations maily in [facility], history of suicidal attempts at age of 22 as cutting wrist, everdosing with pills.Was on different psychotropics over the years,most recent psychiatric admission on January 2017 in [facility]. Most recent medications Seroquel 300 mg po hs, Zoloft 100 mg po daily and Trazodone 100 mg po hs, seen by , medication continued with Seroquel 150 mg po hs, Zoloft 100 mg po daily and Trazodone 100 mg. History ideas of references : thought that TV and people talk about him. Physical/Sexual Abuse/Trauma History: Denies Vital Signs: Vital Signs - 24 hr 07/24/17 07/24/17 01:23 07:04 Temperature 97.7 F Pulse Rate 90 Respiratory 18 18 Rate Blood Pressure 119/79 Allergies/Adverse Reactions: Allergies Allergy/AdvReac Type Severity Reaction Status Date / Time No Known Allergies Allergy Verified 07/23/17 09:40 Concur with the findings of this exam: Yes - Substance Abuse/Tx History Hx Alcohol Use: Yes (first use at age of 14) Substance Use Type: Alcohol (baar 6 pks dauly), Cocaine ($50 daily,started at age of 22) Mental Status Exam - Mental Status Exam Alert and Oriented to: Time, Place, Person Cognitive Function: Good Patient Appearance: Well Groomed Mood: Hopeful Affect: Appropriate, Mood Congruent Patient Behavior: Appropriate, Cooperative Speech Pattern: Clear, Appropriate Voice Loudness: Normal Thought Process: Intact, Goal Oriented Thought Disorder: Not Present Hallucinations: Denies Suicidal Ideation: Denies Homicidal Ideation: Denies Insight/Judgement: Fair Sleep: Fair Appetite: Fair Muscle strength/Tone: Normal Gait/Station: Normal Psychiatric Findings - Problem List ([place] 1, 2,3) (1) Alcohol dependence Current Visit: Yes Status: Acute (2) Schizophrenia, paranoid Current Visit: Yes Status: Acute (3) Cocaine dependence Current Visit: Yes Status: Chronic Qualifiers: Substance use status: uncomplicated Qualified Code(s): F14.20 - Cocaine dependence, uncomplicated; F14.20 - Cocaine dependence, uncomplicated; F14.20 - Cocaine dependence, uncomplicated (4) Nicotine dependence Current Visit: No Status: Acute Qualifiers: Nicotine product type: cigarettes Substance use status: uncomplicated Qualified Code(s): F17.210 - Nicotine dependence, cigarettes, uncomplicated; F17.210 - Nicotine dependence, cigarettes, uncomplicated - Initial Treatment Plan Initial Treatment Plan: Continue Zoloft, increase Seroquel monitor progress as needed.
[2017-07-24] MEDS ORDERED: INSULIN (NOVOLOG) ASPART 100 UNITS/ML 10ML VIAL ONE (12:15)
[2017-07-24] MEDS: THIAMINE HCL 100 MG TABLET (FP) PO SCH (21:20)
[2017-07-24] MEDS: QUEtiapine FUMARATE 300 MG TABLET PO SCH (21:20)
[2017-07-24] MEDS: traZODone HCL 100 MG TABLET (FP) PO SCH (21:20)
[2017-07-24] MEDS: INSULIN DETEMIR 100 UNITS/ML MDV SQ SCH (21:22)
[2017-07-25] MEDS: GABAPENTIN 400 MG CAPSULE (FP) PO SCH ×3 (06:12→21:17)
[2017-07-25] MEDS: INSULIN SLIDING SCALE (NOVOLOG) 1 VIAL SQ SCH ×4 (06:12→21:19)
[2017-07-25] MEDS: metFORMIN HCL 500 MG TABLET (FP) PO SCH ×2 (06:12→16:38)
[2017-07-25] MEDS ORDERED: INSULIN (NOVOLOG) ASPART 100 UNITS/ML 10ML VIAL ONE ×4 (06:47→22:12)
[2017-07-25] MEDS: PRENATAL VITAMINS W/ FOLIC ACID TABLET (FP) PO SCH (10:15)
[2017-07-25] MEDS: SERTRALINE HCL 50 MG TABLET (FP) PO SCH (10:15)
[2017-07-25] MEDS: ASPIRIN 81 MG CHEWABLE TABLETS PO SCH (10:15)
[2017-07-25] MEDS: METOPROLOL SUCCINATE 25 MG TAB.SR.24H (FP) PO SCH (10:15)
[2017-07-25] MEDS: NICOTINE 21 MG/24 HOURS TOPICAL PATCH TD SCH (10:16)
[2017-07-25] MEDS: traZODone HCL 100 MG TABLET (FP) PO SCH (21:17)
[2017-07-25] MEDS: THIAMINE HCL 100 MG TABLET (FP) PO SCH (21:17)
[2017-07-25] MEDS: QUEtiapine FUMARATE 300 MG TABLET PO SCH (21:17)
[2017-07-25] MEDS: INSULIN DETEMIR 100 UNITS/ML MDV SQ SCH (21:18)
[2017-07-26] MEDS: GABAPENTIN 400 MG CAPSULE (FP) PO SCH ×3 (06:41→21:21)
[2017-07-26] MEDS: metFORMIN HCL 500 MG TABLET (FP) PO SCH ×2 (06:41→16:47)
[2017-07-26] MEDS: INSULIN SLIDING SCALE (NOVOLOG) 1 VIAL SQ SCH ×4 (06:42→21:22)
[2017-07-26] MEDS ORDERED: INSULIN (NOVOLOG) ASPART 100 UNITS/ML 10ML VIAL ONE ×2 (07:15→22:01)
[2017-07-26] MEDS: METOPROLOL SUCCINATE 25 MG TAB.SR.24H (FP) PO SCH (10:13)
[2017-07-26] MEDS: ASPIRIN 81 MG CHEWABLE TABLETS PO SCH (10:13)
[2017-07-26] MEDS: NICOTINE 21 MG/24 HOURS TOPICAL PATCH TD SCH (10:13)
[2017-07-26] MEDS: PRENATAL VITAMINS W/ FOLIC ACID TABLET (FP) PO SCH (10:13)
[2017-07-26] MEDS: SERTRALINE HCL 50 MG TABLET (FP) PO SCH (10:13)
[2017-07-26] MEDS: hydrOXYzine PAMOATE 50 MG CAPSULE (FP) PO PRN (14:27)
[2017-07-26] MEDS: QUEtiapine FUMARATE 300 MG TABLET PO SCH (21:21)
[2017-07-26] MEDS: INSULIN DETEMIR 100 UNITS/ML MDV SQ SCH (21:21)
[2017-07-26] MEDS: traZODone HCL 100 MG TABLET (FP) PO SCH (21:21)
[2017-07-26] MEDS: THIAMINE HCL 100 MG TABLET (FP) PO SCH (21:21)
[2017-07-26] MEDS: diphenhydrAMINE HCL 50 MG CAPSULE PO PRN (21:24)
[2017-07-27] MEDS: metFORMIN HCL 500 MG TABLET (FP) PO SCH ×2 (06:37→16:53)
[2017-07-27] MEDS: INSULIN SLIDING SCALE (NOVOLOG) 1 VIAL SQ SCH ×4 (06:37→21:24)
[2017-07-27] MEDS: GABAPENTIN 400 MG CAPSULE (FP) PO SCH ×3 (06:37→21:24)
[2017-07-27] MEDS: hydrOXYzine PAMOATE 50 MG CAPSULE (FP) PO PRN ×3 (06:39→21:26)
[2017-07-27] MEDS ORDERED: INSULIN (NOVOLOG) ASPART 100 UNITS/ML 10ML VIAL ONE ×4 (07:10→22:05)
[2017-07-27] MEDS: ASPIRIN 81 MG CHEWABLE TABLETS PO SCH (10:37)
[2017-07-27] MEDS: PRENATAL VITAMINS W/ FOLIC ACID TABLET (FP) PO SCH (10:37)
[2017-07-27] MEDS: METOPROLOL SUCCINATE 25 MG TAB.SR.24H (FP) PO SCH (10:37)
[2017-07-27] MEDS: SERTRALINE HCL 50 MG TABLET (FP) PO SCH (10:37)
[2017-07-27] MEDS: NICOTINE 21 MG/24 HOURS TOPICAL PATCH TD SCH (10:37)
[2017-07-27] MEDS: INSULIN DETEMIR 100 UNITS/ML MDV SQ SCH (21:24)
[2017-07-27] MEDS: THIAMINE HCL 100 MG TABLET (FP) PO SCH (21:24)
[2017-07-27] MEDS: QUEtiapine FUMARATE 300 MG TABLET PO SCH (21:24)
[2017-07-27] MEDS: traZODone HCL 100 MG TABLET (FP) PO SCH (21:24)
[2017-07-28] MEDS: GABAPENTIN 400 MG CAPSULE (FP) PO SCH ×3 (07:12→21:16)
[2017-07-28] MEDS: metFORMIN HCL 500 MG TABLET (FP) PO SCH ×2 (07:12→16:39)
[2017-07-28] MEDS: INSULIN SLIDING SCALE (NOVOLOG) 1 VIAL SQ SCH ×4 (07:12→21:18)
[2017-07-28] MEDS ORDERED: INSULIN (NOVOLOG) ASPART 100 UNITS/ML 10ML VIAL ONE ×2 (07:18→17:54)
[2017-07-28] MEDS: SERTRALINE HCL 50 MG TABLET (FP) PO SCH (10:02)
[2017-07-28] MEDS: ASPIRIN 81 MG CHEWABLE TABLETS PO SCH (10:02)
[2017-07-28] MEDS: PRENATAL VITAMINS W/ FOLIC ACID TABLET (FP) PO SCH (10:02)
[2017-07-28] MEDS: METOPROLOL SUCCINATE 25 MG TAB.SR.24H (FP) PO SCH (10:02)
[2017-07-28] MEDS: NICOTINE 21 MG/24 HOURS TOPICAL PATCH TD SCH (10:03)
[2017-07-28] MEDS: hydrOXYzine PAMOATE 50 MG CAPSULE (FP) PO PRN ×2 (10:03→21:17)
[2017-07-28] MEDS: INSULIN DETEMIR 100 UNITS/ML MDV SQ SCH (21:16)
[2017-07-28] MEDS: QUEtiapine FUMARATE 300 MG TABLET PO SCH (21:16)
[2017-07-28] MEDS: THIAMINE HCL 100 MG TABLET (FP) PO SCH (21:16)
[2017-07-28] MEDS: traZODone HCL 100 MG TABLET (FP) PO SCH (21:16)
[2017-07-29] MEDS: GABAPENTIN 400 MG CAPSULE (FP) PO SCH ×3 (06:29→21:29)
[2017-07-29] MEDS: metFORMIN HCL 500 MG TABLET (FP) PO SCH ×2 (06:29→16:55)
[2017-07-29] MEDS: INSULIN SLIDING SCALE (NOVOLOG) 1 VIAL SQ SCH ×4 (06:33→21:30)
[2017-07-29] MEDS ORDERED: INSULIN (NOVOLOG) ASPART 100 UNITS/ML 10ML VIAL ONE ×2 (06:40→12:04)
[2017-07-29] MEDS: PRENATAL VITAMINS W/ FOLIC ACID TABLET (FP) PO SCH (10:02)
[2017-07-29] MEDS: METOPROLOL SUCCINATE 25 MG TAB.SR.24H (FP) PO SCH (10:02)
[2017-07-29] MEDS: ASPIRIN 81 MG CHEWABLE TABLETS PO SCH (10:02)
[2017-07-29] MEDS: NICOTINE 21 MG/24 HOURS TOPICAL PATCH TD SCH (10:03)
[2017-07-29] MEDS: SERTRALINE HCL 50 MG TABLET (FP) PO SCH (10:03)
[2017-07-29] MEDS: hydrOXYzine PAMOATE 50 MG CAPSULE (FP) PO PRN ×2 (13:53→21:32)
[2017-07-29] MEDS: THIAMINE HCL 100 MG TABLET (FP) PO SCH (21:29)
[2017-07-29] MEDS: QUEtiapine FUMARATE 300 MG TABLET PO SCH (21:29)
[2017-07-29] MEDS: traZODone HCL 100 MG TABLET (FP) PO SCH (21:29)
[2017-07-29] MEDS: INSULIN DETEMIR 100 UNITS/ML MDV SQ SCH (21:30)
[2017-07-30] MEDS: hydrOXYzine PAMOATE 50 MG CAPSULE (FP) PO PRN ×2 (02:27→21:19)
[2017-07-30] MEDS: GABAPENTIN 400 MG CAPSULE (FP) PO SCH ×3 (06:35→21:18)
[2017-07-30] MEDS: metFORMIN HCL 500 MG TABLET (FP) PO SCH ×2 (06:35→16:46)
[2017-07-30] MEDS: INSULIN SLIDING SCALE (NOVOLOG) 1 VIAL SQ SCH ×4 (06:36→21:19)
[2017-07-30] MEDS ORDERED: INSULIN (NOVOLOG) ASPART 100 UNITS/ML 10ML VIAL ONE ×3 (07:34→21:51)
[2017-07-30] MEDS: SERTRALINE HCL 50 MG TABLET (FP) PO SCH (09:41)
[2017-07-30] MEDS: ASPIRIN 81 MG CHEWABLE TABLETS PO SCH (09:41)
[2017-07-30] MEDS: METOPROLOL SUCCINATE 25 MG TAB.SR.24H (FP) PO SCH (09:41)
[2017-07-30] MEDS: PRENATAL VITAMINS W/ FOLIC ACID TABLET (FP) PO SCH (09:41)
[2017-07-30] MEDS: NICOTINE 21 MG/24 HOURS TOPICAL PATCH TD SCH (09:42)
[2017-07-30] MEDS: QUEtiapine FUMARATE 300 MG TABLET PO SCH (21:18)
[2017-07-30] MEDS: THIAMINE HCL 100 MG TABLET (FP) PO SCH (21:18)
[2017-07-30] MEDS: traZODone HCL 100 MG TABLET (FP) PO SCH (21:18)
[2017-07-30] MEDS: INSULIN DETEMIR 100 UNITS/ML MDV SQ SCH (21:19)
[2017-07-31] MEDS: metFORMIN HCL 500 MG TABLET (FP) PO SCH ×2 (06:13→16:44)
[2017-07-31] MEDS: GABAPENTIN 400 MG CAPSULE (FP) PO SCH ×3 (06:13→21:19)
[2017-07-31] MEDS: INSULIN SLIDING SCALE (NOVOLOG) 1 VIAL SQ SCH ×4 (07:40→21:19)
[2017-07-31] MEDS ORDERED: INSULIN (NOVOLOG) ASPART 100 UNITS/ML 10ML VIAL ONE ×3 (07:43→21:54)
[2017-07-31] MEDS: ASPIRIN 81 MG CHEWABLE TABLETS PO SCH (10:06)
[2017-07-31] MEDS: NICOTINE 21 MG/24 HOURS TOPICAL PATCH TD SCH (10:06)
[2017-07-31] MEDS: METOPROLOL SUCCINATE 25 MG TAB.SR.24H (FP) PO SCH (10:06)
[2017-07-31] MEDS: SERTRALINE HCL 50 MG TABLET (FP) PO SCH (10:06)
[2017-07-31] MEDS: PRENATAL VITAMINS W/ FOLIC ACID TABLET (FP) PO SCH (10:06)
[2017-07-31] MEDS: hydrOXYzine PAMOATE 50 MG CAPSULE (FP) PO PRN ×2 (14:20→21:21)
[2017-07-31] MEDS: THIAMINE HCL 100 MG TABLET (FP) PO SCH (21:19)
[2017-07-31] MEDS: traZODone HCL 100 MG TABLET (FP) PO SCH (21:19)
[2017-07-31] MEDS: QUEtiapine FUMARATE 300 MG TABLET PO SCH (21:19)
[2017-07-31] MEDS: INSULIN DETEMIR 100 UNITS/ML MDV SQ SCH (21:20)
[2017-08-01] MEDS: GABAPENTIN 400 MG CAPSULE (FP) PO SCH ×3 (06:32→21:18)
[2017-08-01] MEDS: metFORMIN HCL 500 MG TABLET (FP) PO SCH ×2 (06:32→16:53)
[2017-08-01] MEDS: INSULIN SLIDING SCALE (NOVOLOG) 1 VIAL SQ SCH ×4 (06:33→21:21)
[2017-08-01] MEDS ORDERED: INSULIN (NOVOLOG) ASPART 100 UNITS/ML 10ML VIAL ONE ×2 (06:37→22:24)
[2017-08-01] MEDS: NICOTINE 21 MG/24 HOURS TOPICAL PATCH TD SCH (09:46)
[2017-08-01] MEDS: ASPIRIN 81 MG CHEWABLE TABLETS PO SCH (09:47)
[2017-08-01] MEDS: PRENATAL VITAMINS W/ FOLIC ACID TABLET (FP) PO SCH (09:47)
[2017-08-01] MEDS: METOPROLOL SUCCINATE 25 MG TAB.SR.24H (FP) PO SCH (09:47)
[2017-08-01] MEDS: SERTRALINE HCL 50 MG TABLET (FP) PO SCH (09:47)
[2017-08-01] MEDS: hydrOXYzine PAMOATE 50 MG CAPSULE (FP) PO PRN ×2 (14:08→21:19)
[2017-08-01] MEDS: QUEtiapine FUMARATE 300 MG TABLET PO SCH (21:18)
[2017-08-01] MEDS: traZODone HCL 100 MG TABLET (FP) PO SCH (21:18)
[2017-08-01] MEDS: THIAMINE HCL 100 MG TABLET (FP) PO SCH (21:18)
[2017-08-01] MEDS: INSULIN DETEMIR 100 UNITS/ML MDV SQ SCH (21:20)
[2017-08-02] MEDS: metFORMIN HCL 500 MG TABLET (FP) PO SCH ×2 (06:15→16:44)
[2017-08-02] MEDS: GABAPENTIN 400 MG CAPSULE (FP) PO SCH ×3 (06:15→21:31)
[2017-08-02] MEDS ORDERED: INSULIN (NOVOLOG) ASPART 100 UNITS/ML 10ML VIAL ONE ×3 (07:09→16:44)
[2017-08-02] MEDS: INSULIN SLIDING SCALE (NOVOLOG) 1 VIAL SQ SCH ×4 (07:35→21:34)
[2017-08-02] MEDS: PRENATAL VITAMINS W/ FOLIC ACID TABLET (FP) PO SCH (10:15)
[2017-08-02] MEDS: METOPROLOL SUCCINATE 25 MG TAB.SR.24H (FP) PO SCH (10:22)
[2017-08-02] MEDS: ASPIRIN 81 MG CHEWABLE TABLETS PO SCH (10:22)
[2017-08-02] MEDS: NICOTINE 21 MG/24 HOURS TOPICAL PATCH TD SCH (10:23)
[2017-08-02] MEDS: SERTRALINE HCL 50 MG TABLET (FP) PO SCH (10:23)
[2017-08-02] MEDS: hydrOXYzine PAMOATE 50 MG CAPSULE (FP) PO PRN ×2 (14:18→21:32)
[2017-08-02] MEDS: THIAMINE HCL 100 MG TABLET (FP) PO SCH (21:31)
[2017-08-02] MEDS: QUEtiapine FUMARATE 300 MG TABLET PO SCH (21:31)
[2017-08-02] MEDS: traZODone HCL 100 MG TABLET (FP) PO SCH (21:31)
[2017-08-02] MEDS: INSULIN DETEMIR 100 UNITS/ML MDV SQ SCH (21:33)
[2017-08-03] MEDS: GABAPENTIN 400 MG CAPSULE (FP) PO SCH ×3 (05:49→21:35)
[2017-08-03] MEDS ORDERED: INSULIN (NOVOLOG) ASPART 100 UNITS/ML 10ML VIAL ONE ×4 (06:57→22:18)
[2017-08-03] MEDS: INSULIN SLIDING SCALE (NOVOLOG) 1 VIAL SQ SCH ×4 (06:59→21:38)
[2017-08-03] MEDS: metFORMIN HCL 500 MG TABLET (FP) PO SCH ×2 (06:59→17:00)
[2017-08-03] MEDS: METOPROLOL SUCCINATE 25 MG TAB.SR.24H (FP) PO SCH (09:54)
[2017-08-03] MEDS: PRENATAL VITAMINS W/ FOLIC ACID TABLET (FP) PO SCH (09:55)
[2017-08-03] MEDS: SERTRALINE HCL 50 MG TABLET (FP) PO SCH (09:55)
[2017-08-03] MEDS: ASPIRIN 81 MG CHEWABLE TABLETS PO SCH (09:55)
[2017-08-03] MEDS: NICOTINE 21 MG/24 HOURS TOPICAL PATCH TD SCH (09:56)
[2017-08-03] MEDS: THIAMINE HCL 100 MG TABLET (FP) PO SCH (21:35)
[2017-08-03] MEDS: traZODone HCL 100 MG TABLET (FP) PO SCH (21:35)
[2017-08-03] MEDS: QUEtiapine FUMARATE 300 MG TABLET PO SCH (21:35)
[2017-08-03] MEDS: hydrOXYzine PAMOATE 50 MG CAPSULE (FP) PO PRN (21:36)
[2017-08-03] MEDS: INSULIN DETEMIR 100 UNITS/ML MDV SQ SCH (21:36)
[2017-08-04] MEDS: diphenhydrAMINE HCL 50 MG CAPSULE PO PRN (01:13)
[2017-08-04] MEDS: metFORMIN HCL 500 MG TABLET (FP) PO SCH ×2 (06:42→16:49)
[2017-08-04] MEDS: GABAPENTIN 400 MG CAPSULE (FP) PO SCH ×3 (06:42→21:23)
[2017-08-04] MEDS: INSULIN SLIDING SCALE (NOVOLOG) 1 VIAL SQ SCH ×4 (06:43→21:25)
[2017-08-04] MEDS ORDERED: INSULIN (NOVOLOG) ASPART 100 UNITS/ML 10ML VIAL ONE ×3 (07:06→22:35)
[2017-08-04] MEDS: NICOTINE 21 MG/24 HOURS TOPICAL PATCH TD SCH (10:19)
[2017-08-04] MEDS: PRENATAL VITAMINS W/ FOLIC ACID TABLET (FP) PO SCH (10:19)
[2017-08-04] MEDS: METOPROLOL SUCCINATE 25 MG TAB.SR.24H (FP) PO SCH (10:19)
[2017-08-04] MEDS: ASPIRIN 81 MG CHEWABLE TABLETS PO SCH (10:20)
[2017-08-04] MEDS: hydrOXYzine PAMOATE 50 MG CAPSULE (FP) PO PRN ×2 (10:20→21:24)
[2017-08-04] MEDS: SERTRALINE HCL 50 MG TABLET (FP) PO SCH (10:20)
[2017-08-04] MEDS: traZODone HCL 100 MG TABLET (FP) PO SCH (21:23)
[2017-08-04] MEDS: QUEtiapine FUMARATE 300 MG TABLET PO SCH (21:23)
[2017-08-04] MEDS: THIAMINE HCL 100 MG TABLET (FP) PO SCH (21:23)
[2017-08-04] MEDS: INSULIN DETEMIR 100 UNITS/ML MDV SQ SCH (21:24)
[2017-08-05] MEDS: GABAPENTIN 400 MG CAPSULE (FP) PO SCH ×3 (06:08→21:20)
[2017-08-05] MEDS: INSULIN SLIDING SCALE (NOVOLOG) 1 VIAL SQ SCH ×4 (06:08→21:21)
[2017-08-05] MEDS: metFORMIN HCL 500 MG TABLET (FP) PO SCH ×2 (06:08→16:47)
[2017-08-05] MEDS ORDERED: INSULIN (NOVOLOG) ASPART 100 UNITS/ML 10ML VIAL ONE ×2 (06:52→11:48)
[2017-08-05] MEDS: PRENATAL VITAMINS W/ FOLIC ACID TABLET (FP) PO SCH (10:11)
[2017-08-05] MEDS: NICOTINE 21 MG/24 HOURS TOPICAL PATCH TD SCH (10:11)
[2017-08-05] MEDS: ASPIRIN 81 MG CHEWABLE TABLETS PO SCH (10:11)
[2017-08-05] MEDS: SERTRALINE HCL 50 MG TABLET (FP) PO SCH (10:11)
[2017-08-05] MEDS: METOPROLOL SUCCINATE 25 MG TAB.SR.24H (FP) PO SCH (10:51)
[2017-08-05] MEDS: hydrOXYzine PAMOATE 50 MG CAPSULE (FP) PO PRN ×2 (13:51→21:22)
[2017-08-05] MEDS: traZODone HCL 100 MG TABLET (FP) PO SCH (21:20)
[2017-08-05] MEDS: THIAMINE HCL 100 MG TABLET (FP) PO SCH (21:20)
[2017-08-05] MEDS: INSULIN DETEMIR 100 UNITS/ML MDV SQ SCH (21:21)
[2017-08-05] MEDS: QUEtiapine FUMARATE 300 MG TABLET PO SCH (21:22)
[2017-08-06] MEDS: hydrOXYzine PAMOATE 50 MG CAPSULE (FP) PO PRN ×2 (03:25→09:55)
[2017-08-06] MEDS: GABAPENTIN 400 MG CAPSULE (FP) PO SCH (06:45)
[2017-08-06] MEDS: metFORMIN HCL 500 MG TABLET (FP) PO SCH (06:46)
[2017-08-06] MEDS: INSULIN SLIDING SCALE (NOVOLOG) 1 VIAL SQ SCH (06:47)
[2017-08-06 06:51] VITALS: BP 139/84; PULSE 73; TEMP 97.9
--- NOTE | 2017-08-06 09:41 | PN ---
Psychiatric Progress Note Vital Signs: Vital Signs Period Temp Pulse Resp BP Sys/Doan Pulse Ox Last 24 Hr 97.9 F 72-73 18-18 139-145/84-97 Date of Session: 08/06/17 Chief Complaint:: discharge visit HPI: Patient has addresse alcohol, cocaine, nicotine dependence comorbid Schzophrenia. ROS: Hypercholesterolemia and diabetes mellitus medically managed. Current Medications: Active Medications Generic Name Dose Route Start Last Admin Trade Name Freq PRN Reason Stop Dose Admin Acetaminophen 650 mg 07/23/17 12:46 Tylenol - PO Q4H PRN PAIN Al Hydroxide/Mg Hydroxide 30 ml 07/23/17 12:46 07/31/17 10:08 Mylanta Oral Suspension - PO 30 ml Q6H PRN Administration DYSPEPSIA Aspirin 81 mg 07/24/17 10:00 08/05/17 10:11 Asa - PO 81 mg DAILY JOSE ANGEL Administration Diphenhydramine HCl 50 mg 07/23/17 12:46 08/04/17 01:13 Benadryl - PO 50 mg HSMR1 PRN Administration INSOMNIA Eucalyptus/Menthol/Phenol/Sorbitol 1 each 07/23/17 12:46 Cepastat Lozenge - MM Q4H PRN SORE THROAT Gabapentin 400 mg 07/23/17 14:05 08/06/17 06:45 Neurontin - PO 400 mg TID JOSE ANGEL Administration Guaifenesin 10 ml 07/23/17 12:46 Robitussin Dm - PO Q6H PRN COUGH Hydroxyzine Pamoate 50 mg 07/23/17 12:46 08/06/17 03:25 Vistaril - PO 50 mg Q4H PRN Administration AGITATION Ibuprofen 400 mg 07/23/17 12:46 Motrin - PO Q6H PRN SEVERE PAIN Insulin Aspart 0 vial 07/24/17 11:00 08/06/17 06:47 Novolog Vial Sliding Scale - SQ Not Given ACHS [facility] Protocol Insulin Detemir 25 units 07/23/17 22:00 08/05/17 21:21 Levemir Vial SQ 25 unit HS JOSE ANGEL Administration Loperamide HCl 4 mg 07/23/17 12:46 Imodium - PO Q6H PRN DIARRHEA Magnesium Citrate 300 ml 07/23/17 12:46 Citroma - PO Q48H PRN CONSTIPATION Magnesium Hydroxide 30 ml 07/23/17 12:46 Milk Of Magnesia - PO DAILY PRN CONSTIPATION Metformin HCl 1,000 mg 07/23/17 16:30 08/06/17 06:46 Glucophage - PO 1,000 mg BIDAC JOSE ANGEL Administration Metoprolol Succinate 25 mg 07/24/17 10:00 08/05/17 10:51 Toprol Xl - PO 25 mg DAILY JOSE ANGEL Administration Nicotine 21 mg 07/24/17 10:00 08/05/17 10:11 Nicoderm Patch - TD Not Given DAILY JOSE ANGEL Nicotine Polacrilex 4 mg 07/23/17 12:46 Nicorette Gum - BUC Q2H PRN NICOTINE REPLACEMENT RX Multivit/Folic Acid/Iron 1 tab 07/24/17 10:00 08/05/17 10:11 Vitamins (Sjr) - PO 1 tab DAILY JOSE ANGEL Administration Pseudoephedrine/Triprolidine 1 combo 07/23/17 12:46 Actifed - PO TID PRN NASAL CONGESTION Quetiapine Fumarate 300 mg 07/24/17 22:00 08/05/17 21:22 Seroquel - PO 300 mg HS JOSE ANGEL Administration Sertraline HCl 100 mg 07/24/17 10:00 08/05/17 10:11 Zoloft - PO 100 mg DAILY JOSE ANGEL Administration Thiamine HCl 100 mg 07/23/17 22:00 08/05/17 21:20 Vitamin B1 - PO 100 mg HS JOSE ANGEL Administration Trazodone HCl 100 mg 07/23/17 22:00 08/05/17 21:20 Desyrel - PO 100 mg HS JOSE ANGEL Administration Current Side Effect: No Lab tests ordered: No Lab tests reviewed: Yes Provider note:: Patient has completed today his treatment an dmet his goals, will continue to address his issues at [facility] in [place]. Patient He reports improved mood, adequate sleep and a remarkable amelioration of insight into the negative consequences of addictions. Patient is motivated to continue maintain his sobriety.Hospital course is uneventful. No acute medical issues. Scripts for 30 days supply provided. Mental status is unremarkable. Patient is stable for discharge today. Total face to face time:: 35 Mental Status Exam - Mental Status Exam Alert and Oriented to: Time, Place, Person Cognitive Function: Good Patient Appearance: Well Groomed Mood: Hopeful Affect: Appropriate, Mood Congruent Patient Behavior: Appropriate, Cooperative Speech Pattern: Clear, Appropriate Voice Loudness: Normal Thought Process: Goal Oriented Thought Disorder: Not Present Hallucinations: Denies Suicidal Ideation: Denies Homicidal Ideation: Denies Insight/Judgement: Fair Sleep: Fair Appetite: Fair Muscle strength/Tone: Normal Gait/Station: Normal Psychiatric Treatment Plan - Problem List (1) Alcohol dependence Current Visit: Yes (2) Schizophrenia, paranoid Current Visit: Yes (3) Cocaine dependence Current Visit: Yes Qualifiers: Substance use status: uncomplicated Qualified Code(s): F14.20 - Cocaine dependence, uncomplicated; F14.20 - Cocaine dependence, uncomplicated; F14.20 - Cocaine dependence, uncomplicated (4) Nicotine dependence Current Visit: No Qualifiers: Nicotine product type: cigarettes Substance use status: uncomplicated Qualified Code(s): F17.210 - Nicotine dependence, cigarettes, uncomplicated; F17.210 - Nicotine dependence, cigarettes, uncomplicated
[2017-08-06] MEDS: METOPROLOL SUCCINATE 25 MG TAB.SR.24H (FP) PO SCH (09:54)
[2017-08-06] MEDS: PRENATAL VITAMINS W/ FOLIC ACID TABLET (FP) PO SCH (09:54)
[2017-08-06] MEDS: ASPIRIN 81 MG CHEWABLE TABLETS PO SCH (09:54)
[2017-08-06] MEDS: SERTRALINE HCL 50 MG TABLET (FP) PO SCH (09:54)
[2017-08-06] MEDS: NICOTINE 21 MG/24 HOURS TOPICAL PATCH TD SCH (11:05)
== END 2017-08-06 11:03 | disposition home or self-care (01) | DRG 772 ==
LOC: YASAS 07:50 → Y5N 12:56
PROVIDERS: ADMIT Psychiatry & Neurology Psychiatry; ATTEND Psychiatry & Neurology Psychiatry
PROC: HZ42ZZZ Group Counseling for Substance Abuse Treatment, Cognitive-Behavioral (ICD-10-PCS; principal; 2017-07-23)
DX: F10.20 Alcohol dependence, uncomplicated (principal); F14.20 Cocaine dependence, uncomplicated; F17.210 Nicotine dependence, cigarettes, uncomplicated; F51.01 Primary insomnia; F20.0 Paranoid schizophrenia; F19.24 Other psychoactive substance dependence with psychoactive substance-induced mood disorder; F32.9 Major depressive disorder, single episode, unspecified; E11.9 Type 2 diabetes mellitus without complications; E78.00 Pure hypercholesterolemia, unspecified; I10 Essential (primary) hypertension; G62.9 Polyneuropathy, unspecified; Z79.84 Long term (current) use of oral hypoglycemic drugs; Z79.4 Long term (current) use of insulin; Z59.0 Homelessness
CPT/HCPCS: 81003; 83036